=== PATIENT | female | born 1950 | race Caucasian/White ===

== ENCOUNTER 2017-09-22 12:44 | Emergency (ER) | payer MEDICARE, OTHER ==
[~2017-09-22] VITALS: Ht 162.6 cm; Wt 113.6 kg
[~2017-09-22 12:44] MED LIST: LEVO100T PO; LIOT5TAB7 PO
[2017-09-22 13:26] LABS: BASOPHILS # (AUTO) 0.1 X10'3 (0-0.2); BASOPHILS % (AUTO) 0.8 % (0-1); EOSINOPHILS % (AUTO) 0.1 % (0-6); HEMATOCRIT 40.9 % (35.0-45.0); HEMOGLOBIN 13.2 g/dl (12.0-16.0); LYMPHOCYTES # (AUTO) 1.4 X10'3 (1.1-4.8); LYMPHOCYTES % (AUTO) 17.2 % (21-51); MEAN CORPUSCULAR HEMOGLOBIN 26.2 PG (27.0-31.0); MEAN CORPUSCULAR HGB CONC 32.3 % (33.0-36.5); MEAN CORPUSCULAR VOLUME 81.1 FL (78-98); MEAN PLATELET VOLUME 7.7 FL (7.4-10.4); MONOCYTES # (AUTO) 0.4 X10'3 (0-0.9); MONOCYTES % (AUTO) 5.2 % (2-12); NEUTROPHILS % (AUTO) 76.7 % (42-75); PLATELET COUNT 450 X10'3 (140-440); RED BLOOD COUNT 5.04 X10'6 (4.20-5.60); RED CELL DISTRIBUTION WIDTH 16.8 % (11.5-14.5); WHITE BLOOD COUNT 7.9 X10'3 (4.5-11.0)
[2017-09-22 13:36] LABS: PARTIAL THROMBOPLASTIN TIME 33 SECONDS (22-32)
[2017-09-22 13:41] LABS: ALANINE AMINOTRANSFERASE < 6 U/L (12-78); ALBUMIN 3.5 G/DL (3.4-5.0); ALBUMIN/GLOBULIN RATIO 0.8 (1.1-1.5); ALKALINE PHOSPHATASE 81 IU/L (46-116); ANION GAP 4 (8-16); ASPARTATE AMINO TRANSFERASE 12 U/L (10-37); BILIRUBIN,TOTAL 0.5 MG/DL (0.1-1.0); BLOOD UREA NITROGEN 10 MG/DL (7-18); BUN/CREATININE RATIO 8.5 (6.6-38.0); CALCIUM 9.2 MG/DL (8.5-10.1); CHLORIDE 99 MMOL/L (99-107); CREATINE KINASE 67 U/L (26-192); CREATININE 1.18 MG/DL (0.40-0.90); ETHANOL < 0.010 GM/DL (0.0-0.010); GLUCOSE 103 MG/DL (70-104); MAGNESIUM 2.2 MG/DL (1.5-2.4); POTASSIUM 4.2 MMOL/L (3.5-5.1); SODIUM 140 MMOL/L (135-145); TOTAL CARBON DIOXIDE 36.7 MMOL/L (24-32); TOTAL PROTEIN 7.9 G/DL (6.4-8.2); eGFR 46 ML/MIN
[2017-09-22] MEDS ORDERED: CYCL-1 PO (14:49)
[2017-09-22] MEDS ORDERED: HYDR-3965 PO (14:49)
[2017-09-22] MEDS ORDERED: aspirin 325mg tablet PO ONE (17:30)
[2017-09-22] MEDS ORDERED: amLODIPine 5mg tablet PO ONE (18:30)
[2017-09-22 20:21] VITALS: BP 152/108
== END 2017-09-22 20:24 | disposition short-term general hospital (02) ==
LOC: ER 12:45
DX: S01.21XA Laceration without foreign body of nose, initial encounter (principal); S00.12XA Contusion of left eyelid and periocular area, initial encounter; M79.622 Pain in left upper arm; R20.0 Anesthesia of skin; R51 Headache; I10 Essential (primary) hypertension; I25.10 Atherosclerotic heart disease of native coronary artery without angina pectoris; J45.909 Unspecified asthma, uncomplicated; G89.29 Other chronic pain; Z98.890 Other specified postprocedural states; Z91.012 Allergy to eggs; Z91.011 Allergy to milk products; W10.8XXA Fall (on) (from) other stairs and steps, initial encounter; Y93.01 Activity, walking, marching and hiking; Y92.89 Other specified places as the place of occurrence of the external cause; Y99.8 Other external cause status
CPT/HCPCS: 36415; 70450; 70486; 71045; 72125; 80053; 80320; 82550; 83735; 84484; 85025; 85610; 85730; 93005; 99285

== ENCOUNTER 2018-10-10 15:38 | Emergency (ER) | payer MEDICARE, OTHER ==
[~2018-10-10] VITALS: Ht 172.7 cm; Wt 100.0 kg
[~2018-10-10 15:38] MED LIST changes: +CYCL-1 PO; +DOBUTamine/D5W 500mg/250ml premix IV ONE; +etomidate 2mg/ml inj. ONE
[2018-10-10] MEDS ORDERED: normal saline 1000ML IV soln IVB ONE (15:50)
[2018-10-10] MEDS ORDERED: naloxone 2mg/2ml inj IV ONE (15:50)
[2018-10-10 16:14] LABS: BASOPHILS % (AUTO) 0 % (0-1); EOSINOPHILS % (AUTO) 0 % (0-6); HEMATOCRIT 46.7 % (35.0-45.0); HEMOGLOBIN 15.3 g/dl (12.0-16.0); LYMPHOCYTES # (AUTO) 1.2 X10'3 (1.1-4.8); LYMPHOCYTES % (AUTO) 6.2 % (21-51); MEAN CORPUSCULAR HEMOGLOBIN 27.7 PG (27.0-31.0); MEAN CORPUSCULAR HGB CONC 32.8 % (33.0-36.5); MEAN CORPUSCULAR VOLUME 84.5 FL (78-98); MEAN PLATELET VOLUME 9.6 FL (7.4-10.4); MONOCYTES # (AUTO) 0.4 X10'3 (0-0.9); NEUTROPHILS # (AUTO) 18.1 X10'3 (1.8-7.7); NEUTROPHILS % (AUTO) 91.8 % (42-75); PLATELET COUNT 360 X10'3 (140-440); RED BLOOD COUNT 5.53 X10'6 (4.20-5.60); RED CELL DISTRIBUTION WIDTH 17.8 % (11.5-14.5); WHITE BLOOD COUNT 19.7 X10'3 (4.5-11.0)
[2018-10-10 16:31] LABS: ABG BASE EXCESS 0.3 mmol/L (-2.0-3.0); ABG HCO3 30.9 mmol/L (22.0-26.0); ABG OXYGEN SATURATION 98.6 % (95-98); ABG PO2 (T) 143.1 mmHg (83-108); ALLEN'S TEST Positive; FCOHb 0.7 % (0.5-1.5); FLOW 13 L/min; FMetHb 0.3 % (0.3-1.12); FO2Hb 97.6 % (94-100); TOTAL HEMOGLOBIN 14.6 G/dl (12.0-16.0)
[2018-10-10 16:39] LABS: CLARITY,URINE CLOUDY (Clear); COLOR,URINE YELLOW (Yellow); GLUCOSE, URINE NEGATIVE (Neg); KETONES,URINE NEGATIVE (Neg); LEUKOCYTE ESTERASE ,URINE NEGATIVE (Neg); OCCULT BLOOD,URINE LARGE (Neg); PH,URINE 6.5 (4.8-8.0); PROTEIN,URINE >=300 mg/dl (Neg)
[2018-10-10 16:41] LABS: UA COLLECTION TYPE VOIDED
[2018-10-10 16:42] LABS: ALANINE AMINOTRANSFERASE 34 U/L (12-78); ALBUMIN 3.9 G/DL (3.4-5.0); ALBUMIN/GLOBULIN RATIO 0.8 (1.1-1.5); ALKALINE PHOSPHATASE 111 IU/L (46-116); ANION GAP 11 (8-16); ASPARTATE AMINO TRANSFERASE 101 U/L (10-37); BILIRUBIN,TOTAL 0.6 MG/DL (0.1-1.0); BLOOD UREA NITROGEN 30 MG/DL (7-18); BUN/CREATININE RATIO 20.4 (6.6-38.0); CALCIUM 9.9 MG/DL (8.5-10.1); CHLORIDE 102 MMOL/L (99-107); CREATININE 1.47 MG/DL (0.40-0.90); GLUCOSE 124 MG/DL (70-104); SODIUM 145 MMOL/L (135-145); TOTAL CARBON DIOXIDE 31.6 MMOL/L (24-32); TOTAL PROTEIN 8.5 G/DL (6.4-8.2); eGFR 35 ML/MIN
[2018-10-10 16:44] LABS: NITRITES, URINE NEGATIVE (Neg)
[2018-10-10 16:46] LABS: ETHANOL < 0.010 GM/DL (0.0-0.010)
[2018-10-10 16:48] LABS: POTASSIUM 2.5 MMOL/L (3.5-5.1)
[2018-10-10 16:49] LABS: SQUAMOUS EPITHELIAL CELL,UR MANY /LPF (FEW)
[2018-10-10 16:50] LABS: MUCUS STRANDS MODERATE /LPF (Neg)
[2018-10-10] MEDS ORDERED: CefTRIAXone/D5W-Rocephin 1gm 50 ML IV ONE (16:50)
[2018-10-10 16:52] LABS: WBC,URINE TNTC /HPF (0-4)
[2018-10-10 16:54] LABS: BACTERIA,URINE 1+ /HPF (Neg); URINE AMPHETAMINE SCREEN NEGATIVE (Neg); URINE BARBITUATE SCREEN NEGATIVE (Neg); URINE BENZODIAZEPINES SCREEN NEGATIVE (Neg); URINE CANNABINOID SCREEN NEGATIVE (Neg); URINE COCAINE SCREEN NEGATIVE (Neg); URINE METHADONE SCREEN NEGATIVE (Neg); URINE OPIATE SCREEN NEGATIVE (Neg); URINE PHENCYCLIDINE SCREEN NEGATIVE (Neg)
[2018-10-10] MEDS ORDERED: potassium Cl 40 mEq/NS 500ml IV ONE (16:55)
[2018-10-10] MEDS ORDERED: succinylcholine 20mg/ml inj IV ONE (16:56)
[2018-10-10 16:58] LABS: ANISOCYTOSIS 2+; MICROCYTOSIS 1+; PLATELET ESTIMATE NORMAL; TOTAL CELLS COUNTED 100
[2018-10-10] MEDS ORDERED: levoTHYROXINE sod inj. 100mcg/5 ml vial IV SCH (17:03)
[2018-10-10] MEDS ORDERED: Potassium Cl 40 MEQ in NS 500 ML IV ONE (17:05)
[2018-10-10 17:06] LABS: MAGNESIUM 2.2 MG/DL (1.5-2.4); PHOSPHORUS 4.1 MG/DL (2.3-4.5)
[2018-10-10 17:12] LABS: INR 1.1 INR; PARTIAL THROMBOPLASTIN TIME 34 SECONDS (22-32); PROTHROMBIN TIME 11.4 SECONDS (9.0-12.0)
--- NOTE | 2018-10-10 17:23 | NUR ---
PATIENT RECEIVED IN BED 5 FROM BED 15.
--- NOTE | 2018-10-10 17:24 | NUR ---
RECEIVED SHORT NON SPECIFIC SBAR REPORT FROM CHUN RN,NO HISTORY,PATIENT ON RESPIRATORY DISTRESS WHEN RECEIVED PATIENT.RT AT BEDSIDE.
--- NOTE | 2018-10-10 17:25 | NUR ---
1707:etomidate 20mg admin 1708:succs 100mg given. 1709:intubation by Dr. Gatica with cricod pressure -suctioned secretions -placed patient to co. -bougie size 8,color changed with co2 detector,24 at teeth,lung sounds equal bilaterally. 1710:hr 119 sat 94% rr 20,84/39 1712: bear hugger,OG size 18 placed. 1715: hr 109 bp 119/76, fi02 50 o2 93%. 1725:radiology at bedside.
[2018-10-10] MEDS ORDERED: FENTANYL-0.9 % NACL/PF 100 ML IV PRN (17:35)
[2018-10-10] MEDS ORDERED: midazolam 100mg in NS 100ml 100 ML IV PRN (17:35)
[2018-10-10 17:40] LABS: ABG BASE EXCESS 1.4 mmol/L (-2.0-3.0); ABG HCO3 25.4 mmol/L (22.0-26.0); ABG OXYGEN SATURATION 91.2 % (95-98); ABG PCO2 (T) 31.8 mmHg (32.0-45.0); ABG PH (T) 7.504 (7.350-7.450); ABG PO2 (T) 41.3 mmHg (83-108); FCOHb 1.3 % (0.5-1.5); FMetHb 0.3 % (0.3-1.12); FO2Hb 89.7 % (94-100); MINUTE VOLUME 9 L/min; PATIENT TEMPERATURE 32.9; PEEP 5 cm H2O; RESPIRATORY RATE 20 b/min; RESPIRATORY RATE (OBSERVED) 20 b/min; TIDAL VOLUME 450 mL; TOTAL HEMOGLOBIN 13.8 G/dl (12.0-16.0)
[2018-10-10] MEDS ORDERED: NORepinephrine 8mg/ 250ml NS 250 ML IV SCH (17:55)
--- NOTE | 2018-10-10 17:56 | NUR ---
ATTEMPTED TO OBTAIN BP MANUALLY,UNSUCCESFUL.ATTEMPTED MULTIPLE TIMES.STARTED PATIENT ON FENTANYL 25MCG/HR.
--- NOTE | 2018-10-10 18:15 | NUR ---
RN MIXED LEVOPHED 8MG WITH D5W,PHARMACIST/DELILAH HERE TO VERIFY MED DOSAGE AND FLUIDS.
--- NOTE | 2018-10-10 18:18 | NUR ---
LEVOPHED 2MCG/HR ADMIN.STILL UNABLE TO OBTAIN BP AT THIS TIME.
--- NOTE | 2018-10-10 18:18 | NUR ---
dr. arshad at bedside for central line placement,started patient on lwevophed,unable to obtian bp manually,attempted multiple times.Dr. Arshad aware.ok'd to admin levophed and versed without bp.
--- NOTE | 2018-10-10 18:20 | NUR ---
UPON ASSUMPTION OF PATIENT CARE, I RECEIVED A NON-SPECIFIC REPORT, NO HX OF PRESENT ILLNESS GIVEN OTHER THAN "PT FOUND DOWN AT HOME", UNKNOWN PATIENT BASELINE MENTAL STATUS, AND THERE IS NO TRIAGE NOTE. PER RN THEY HAVE NOT BEEN ABLE TO GET A BLOOD PRESSURE VIA AUTOMATIC OR MANUAL BP CUFFS, LEVOPHED GOING AT 2 WITH NO TITRATION. MD HARDY AT BEDSIDE FOR CENTRAL LINE PLACEMENT AND IS AWARE OF INABILITY TO OBTAIN BP. UPON ASSUMING CARE PT RECEIVED 1 LITER OF IV FLUIDS, AND NO ANTIBIOTICS. CASE REVIEWED WITH HAYLEY ESPINAL WHILE HE PLACED CENTRAL LINE, PER MD POSSIBLE TRANSFER DUE TO POTENTIAL BRAIN BLEED.
[2018-10-10 19:34] VITALS: BP 72/48
--- NOTE | 2018-10-11 06:21 | NUR ---
RECEIVED PATIENT FROM EMS CODE THREE FROM [place] LAST SEEN NORMAL ONE WEEK PRIOR. HAD PRECEPT PAMELA KELLERNUTRITION SERVICES ASSISTANT WHILE MYSELF DANNIE KELLER AND DARYA MARIE WERE TREATING AND ASSESSING PATIENT. A 20 G PIV WAS STARTED TO RIGHT AC BY DANNIE WHILE WARM NS WAS PRIMED AND STARTED. A FIELD START PIV WAS PLACED EN ROUTE TO LEFT AC. DURING PIV START LADS INCLUDING BLOOD CULTURES WERE ATTAINED. WARM BLANKETS WERE PROVIDED UPON ARRIVAL DUE TO THE INABILITY O GET AN AXILLARY TEMP AND HER COLD SKIN. THE PATIENT WAS HOOKED UP TO THE MONITOR UPON ARRIVAL TO BP, PULSE OX, AND CARDIAC LEADS. ABG FROM RT WAS AT BEDSIDE WHILE I WAS CLEANING AND WARMING PATIENT WHILE PERFORMING MY ASSESSMENT. A TEMPT F/C WAS PLACED BEFORE ABG AND CT. INITIAL TEMP WAS 88.9 MULTIPLE AREAS OF YEAST LIKE RASHES UNDER BREAST AND PANUS AND LEFT ABD OSTOMY WAS UNCOVERED AND CAKED WITH STOOL AND DEBRIS. CT OUTSIDE ROOM WAITING FOR RT/ABG. WHEN SHE WAS TRANSPORTED TO CT. APPROX TEN MINUTES AT CT THE PATIENT CAME BACK WAS HOOKED BACK UP TO MONITOR AND WERE GETTING THE BEAR HUGGER FOR INCREASED WARMTH. APPROX FIVE MINUTES AFTER COMING BACK FROM CT DR HARDY INFORMED ME OF INTUBATION, HE ORDERED 20MG OF ETOMIDATE AND 100MG OF SUCCINYLCHOLINE. OTHER STAFF WERE PREPARING PATIENT TO MOVE TO ROOM 5 FROM 15 WHILE KRYSTEN MARIE GETS ET TUBE PREPPED AND PAMELA KELLER AND I DRAW UP MEDICATIONS WITH RT AT BEDSIDE. ASSESSMENT: LUNGS WERE DIMINISHED BUT SNORING RESPIRATIONS MADE IT DIFFICULT TO ASSESS UPPER LOBES. ABSENT BOWEL SOUNDS IN ALL FOUR QUADRANTS WITH OSTOMY PRESENT ON LLQ. THE SKIN AROUND OSTOMY WAS DIRTY WITH DRIED STOOL,AND HAIR. ALL EXTREMITIES WERE COLD TO TOUCH AND PEDAL PULSES DIMINISHED. YEAST LIKE RASH TO BREASTS, CHEST, AND PANUS. SHE SMELLED ON URINE AND STOOL, THAT WAS CLEANED BEFORE F/C INSERTION. PATIENT SNORING, NON VERBAL, AND TURING TO TURN ON HER SIDE. NO FAMILY MEMBER PRESENT WITH NO MEDICAL HISTORY RECEIVED DUE TO PATIENT CONDITION. IN CHART NO PREFERRED PHARMACY OR EXTERNAL MEDICATION HISTORY. NO WOUNDS SEEN WHEN TURNED TO SIDE.
--- NOTE | 2018-10-11 06:43 | NUR ---
AMENDED NOTES FROM YESTERDAY:FENTANYL WAS NOT STARTED AND WAS HANDED IV MEDICATION TO ONCOMING NURSE DELFINA.
== END 2018-10-11 02:07 | disposition short-term general hospital (02) ==
LOC: MERGE 15:38 → ER 15:38
DX: I62.9 Nontraumatic intracranial hemorrhage, unspecified (principal); I21.4 Non-ST elevation (NSTEMI) myocardial infarction; E03.5 Myxedema coma; G93.49 Other encephalopathy; E87.2 Acidosis; E87.6 Hypokalemia; E66.9 Obesity, unspecified; E03.9 Hypothyroidism, unspecified
CPT/HCPCS: 31500; 36415; 36556; 36600; 70450; 71045; 80053; 80305; 80320; 81001; 82140; 82803; 82948; 83605; 83735; 84100; 84439; 84443; 84484; 85018; 85025; 85610; 85730; 87040; 93005; 94660; 94760; 96365; 96366; 96375; 99285; J0330; J0696; J1250; J2250; J2310; J3480; J7030; 94002; J3490